=== PATIENT | male | born 1975 | race Caucasian/White ===

== ENCOUNTER 2020-06-04 09:52 | Emergency (ER) | payer OTHER ==
[2020-06-04] MEDS ORDERED: TETANUS,DIPH,PERTUSS(ACELL) VACCINE 0.5 ML SYRINGE IM ONE ×2 (10:59→13:10)
--- NOTE | 2020-06-04 11:10 | Emergency Department Report ---
- General Chief Complaint: Puncture Wound Stated Complaint: RT FOOT INJURY Time Seen by Provider: 06/04/20 10:57 Source: patient Mode of arrival: Ambulatory Limitations: Physical Limitation - History of Present Illness Initial Comments: Patient is a 44-year-old male presents emergency room complaints of a puncture wound to the left plantar foot that occurred yesterday. Patient states that he was wearing rubber base tennis shoes. He states that he stepped on a dary nail. He states that he does have pain to his plantar foot with ambulation. He states that his clean the area with alcohol. He is unsure of his last tetanus immunization. He states that he was able to easily remove the nail without any significant bleeding. He denies any numbness, weakness, fever, d rainage, chills, vomiting. He denies any past medical history. No allergies to medications. - Related Data Previous Rx's Medication Instructions Recorded Last Taken Type Ciprofloxacin HCl [Ciprofloxacin 500 mg PO BID 7 Days #28 tablet 06/04/20 Unknown Rx TAB] Neomycin/Bacitracin/Polymyxinb 1 applicatio TP BID #14 oint...g. 06/04/20 Unknown Rx [Triple Antibiotic Ointment] Allergies Allergy/AdvReac Type Severity Reaction Status Date / Time No Known Allergies Allergy Verified 06/04/20 13:14 ED Review of Systems ROS: Stated complaint: RT FOOT INJURY Other details as noted in HPI Comment: All other systems reviewed and negative ED Past Medical Hx - Surgical History Additional Surgical History: BACK - Social History Smoking Status: Never Smoker Substance Use Type: None - Medications Home Medications: Home Medications Medication Instructions Recorded Confirmed Last Taken Type Ciprofloxacin HCl [Ciprofloxacin 500 mg PO BID 7 Days #28 tablet 06/04/20 Unknown Rx TAB] Neomycin/Bacitracin/Polymyxinb 1 applicatio TP BID #14 oint...g. 06/04/20 Unknown Rx [Triple Antibiotic Ointment] ED Physical Exam - General Limitations: Physical Limitation General appearance: alert, in no apparent distress - Head Head exam: Present: atraumatic, normocephalic - Eye Eye exam: Present: normal appearance - ENT ENT exam: Present: mucous membranes moist - Respiratory Respiratory exam: Absent: respiratory distress, accessory muscle use - Extremities Exam Extremities exam: Present: other (there is a 0.5 cm puncture wound present to the plantar surface of the left distal foot, there is some surrounding ttp, no erythema, no bleeding, no increased warmth, FROM of the left ankle, foot, and toes, no deformity, no crepitus, neurovasculalry intact, compartments are soft) - Neurological Exam Neurological exam: Present: alert, oriented X3 - Psychiatric Psychiatric exam: Present: normal affect, normal mood - Skin Skin exam: Present: warm, dry ED Course Vital Signs 06/04/20 06/04/20 10:56 13:22 Temperature 97.9 F Pulse Rate 61 69 Respiratory 15 16 Rate Blood Pressure 117/75 Blood Pressure 130/85 [Right] O2 Sat by Pulse 98 97 Oximetry ED Medical Decision Making - Radiology Data Radiology results: report reviewed Ordering Physician: GENE ROMERO Date of Service: 06/04/20 Procedure(s): XR foot 3+V LT Accession Number(s): [id number] cc: GENE ROMERO Fluoro Time In Minutes: LEFT FOOT 3 VIEWS INDICATION: stepped on nail to plantar foot. COMPARISON: None. IMPRESSION: No acute osseous or soft tissue abnormality. 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 No r adiopaque soft tissue foreign body is detected on x-ray. Signer Name: Sean Perry Jr, MD Signed: 06/04/2020 11:53 AM Workstation Name: [id number] Transcribed By: TTR Dictated By: SEAN PERRY JR, MD Electronically Authenticated By: SEAN PERRY JR, MD Signed Date/Time: 06/04/20 1153 DD/ 1152 TD/TT: Print Cancel - Medical Decision Making Patient is a 44-year-old male presents emergency room complaints of a puncture wound to the left plantar foot that occurred yesterday. Patient states that he was wearing rubber base tennis shoes. He states that he stepped on a dary nail. He states that he does have pain to his plantar foot with ambulation. He states that his clean the area with alcohol. He is unsure of his last tetanus immunization. He states that he was able to easily remove the nail without any significant bleeding. He denies any numbness, weakness, fever, drainage, chills, vomiting. He denies any past medical history. No allergies to medications. Vitals are normal. On exam: there is a 0.5 cm puncture wound present to the plantar surface of the left distal foot, there is some surrounding ttp, no erythema, no bleeding, no increased warmth, FROM of the left ankle, foot, and toes, no deformity, no crepitus, neurovasculalry intact, compartments are soft. There are no signs of infection at this time. Appears clean, dry, intact. No signs of any bleeding. X-ray left foot: IMPRESSION: No acute osseous or soft tissue abnormality. 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 No r adiopaque soft tissue foreign body is detected on x-ray. Discussed all results with patient answered questions. Patient given tetanus immunization. Discussed wound care with patient. Given that patient was wearing rubber based shoes will cover patient for Pseudomonas with Cipro. Discussed risk associated with doing so and avoiding rigorous activity. Advised patient Please use medication as prescribed. Please keep area clean, dry, covered. Wash with antibacterial soap and water and pat dry. Follow-up with a primary care doctor for reexamination. Return to emergency room for any new or worsening symptoms. Critical care attestation.: If time is entered above; I have spent that time in minutes in the direct care of this critically ill patient, excluding procedure time. ED Disposition Clinical Impression: Puncture wound of left foot Qualifiers: Encounter type: initial encounter Qualified Code(s): S91.332A - Puncture wound without foreign body, left foot, initial encounter Disposition: TO HOME OR SELFCARE Is pt being admited?: No Does the pt Need Aspirin: No Condition: Stable Instructions: Puncture Wound Additional Instructions: Please use medication as prescribed. Please keep area clean, dry, covered. Wash with antibacterial soap and water and pat dry. Follow-up with a primary care doctor for reexamination. Return to emergency room for any new or worsening symptoms. Prescriptions: Ciprofloxacin HCl [Ciprofloxacin TAB] 500 mg PO BID 7 Days #28 tablet Neomycin/Bacitracin/Polymyxinb [Triple Antibiotic Ointment] 1 applicatio TP BID #14 oint...g. Referrals: MELANIE TREVIÑO MD [Primary Care Provider] - 2-3 Days CIRILO WELCH MD [Staff Physician] - 2-3 Days [facility] [Provider Group] - 2-3 Days Forms: Work/School Release Form(ED) Time of Disposition: 12:49 Print Language: MAORI
--- NOTE | 2020-06-04 11:57 | XRay Report ---
LEFT FOOT 3 VIEWS INDICATION: stepped on nail to plantar foot. COMPARISON: None. IMPRESSION: No acute osseous or soft tissue abnormality. A moderate hallux valgus valgus deformit y is identified with mild degenerative changes at the first metatarsophalangeal joint. No radiopaque soft tissue foreign body is detected on x-ray. Signer Name: Sean Perry Jr, MD Signed: 06/04/2020 11:53 AM Workstation Name: [id number]
[2020-06-04 13:22] VITALS: BP 130/85
== END 2020-06-04 13:25 | disposition home or self-care (01) ==
LOC: ED 09:52
DX: S91.332A Puncture wound without foreign body, left foot, initial encounter (principal); Z79.2 Long term (current) use of antibiotics; Z79.899 Other long term (current) drug therapy; W22.8XXA Striking against or struck by other objects, initial encounter; Y93.89 Activity, other specified; Y92.89 Other specified places as the place of occurrence of the external cause; Y99.8 Other external cause status
CPT/HCPCS: 90471; 90715